=== PATIENT | female | born 2000 | race Caucasian/White ===

== ENCOUNTER 2024-04-20 15:40 | Observation (INO) | payer OTHER, SELFPAY ==
[2024-04-20 15:46] VITALS: BP 128/67; PULSE 62; RESP 16; TEMP 37.1; O2SAT 99; BMI 34.7
[2024-04-20 16:15] LABS: Add Manual Diff / Slide Review NO; Basophils Absolute Auto 0 /uL (0-100); Basophils Percent Auto 0.3 % (0-2); Eosinophils Absolute Auto 100 /uL (0-450); Eosinophils Percent Auto 0.9 % (2-4); Hematocrit 35.9 % (36-46); Hemoglobin 11.7 g/dL (12.0-16.0); Lymphocytes Absolute Auto 2600 /uL (1100-4500); Lymphocytes Percent Auto 21.9 % (25-40); Mean Corpuscular HGB Conc 32.6 % (30-36); Mean Corpuscular Hemoglobin 27.2 PG (26-34); Mean Corpuscular Volume 83.3 fL (80-100); Monocytes Absolute Auto 1000 /uL (0-900); Monocytes Percent Auto 8.6 % (3-14); Neutrophils Absolute Auto 8100 /uL (1500-7000); Neutrophils Percent Auto 68.3 % (50-75); Platelet Count 286 X10^3/uL (150-400); Red Blood Cell Count 4.31 X10^6/uL (4.0-5.2); Red Cell Distribution Width 14.1 % (11.6-14.8); White Blood Cell Count 11.9 X10^3/uL (4.5-11.0)
[2024-04-20 16:30] LABS: Alanine Aminotransferase 22 IU/L (<35); Albumin 3.9 g/dL (3.5-5.0); Albumin Globulin Ratio 1.1 (1.0-2.8); Alkaline Phosphatase 53 U/L (38-126); Aspartate Aminotransferase 26 IU/L (14-36); BUN Creatinine Ratio 15.3 (6-22); Bilirubin Total 0.4 mg/dL (0.2-1.3); Blood Urea Nitrogen 11 mg/dL (7-17); Carbon Dioxide 26 mmol/L (22-32); Chloride 104 mmol/L (98-107); Estimated Glomerular Filt Rate > 60 mL/min (>60); Globulin 3.4 g/dL (1.7-4.1); Glucose 102 mg/dL (70-100); HEMOLYSIS < 15 (0-50); Lipase 37 U/L (23-300); Potassium 3.9 mmol/L (3.4-5.1); Sodium 135 mmol/L (137-145); Total Protein 7.3 g/dL (6.3-8.2)
--- NOTE | 2024-04-20 17:01 | ED.ABDPAIN ---
HPI - Abdominal Pain <Ted Garzon PA-C - Last Filed: 04/20/24 18:36> General Chief Complaint: Abdominal Pain Stated Complaint: lower rt abd px Time Seen by Provider: 04/20/24 17:00 Source: patient Mode of arrival: Family Vehicle History of Present Illness HPI narrative: 23-year-old female presents to the ED with 2 days of abdominal pain. Patient states that her pain started late morning yesterday in the periumbilical region, migrated to the right lower quadrant. Patient endorses some nausea. No fever, chills, vomiting, diarrhea, constipation, hematochezia, melena. No prior abdominal surgeries. Related Data Home Medications Medication Instructions Recorded Confirmed sertraline 50 mg tablet 50 mg PO DAILY 04/20/24 04/20/24 Allergies Allergy/AdvReac Type Severity Reaction Status Date / Time No Known Drug Allergies Allergy Verified 04/20/24 15:53 Review of Systems <Ted Garzon PA-C - Last Filed: 04/20/24 18:36> Constitutional Constitutional: Denies chills, Denies fatigue, Denies fever(s), Denies frequent falls, Denies lethargy and Denies weakness Eyes Eyes: Denies change in vision, Denies eye discharge, Denies irritation and Denies loss of vision ENT Ears, Nose, Mouth, and Throat: Denies change in voice, Denies dizziness, Denies neck pain, Denies sore throat and Denies throat swelling Cardiovascular Cardiovascular: Denies chest pain, Denies irregular heart rhythm, Denies lightheadedness, Denies palpitations, Denies dyspnea, Denies dyspnea on exertion and Denies orthopnea Respiratory Respiratory: Denies cough, Denies dyspnea, Denies dyspnea on exertion and Denies wheezing Gastrointestinal Gastrointestinal: Reports abdominal pain, Denies change in bowel habits, Denies diarrhea, Reports nausea and Denies vomiting Musculoskeletal Musculoskeletal: Denies neck pain and Denies numbness Integumentary/Breasts Skin/Breast: Denies pruritus, Denies erythema, Denies rash and Denies wounds Neurologic Neurologic: Denies behavioral changes, Denies confusion, Denies dizziness, Denies frequent falls, Denies loss of vision, Denies numbness and Denies weakness Psychiatric Psychiatric: Denies anxiety, Denies behavioral changes, Denies confusion, Denies depression, Denies homicidal ideation and Denies suicidal ideation Endocrine Endocrine: Denies fatigue, Denies flushing and Denies palpitations Hematologic/Lymphatic Hematologic/Lymphatic: Denies easy bruising Allergic/Immunologic Allergic/Immunologic: Denies urticaria, Denies throat swelling and Denies wheezing Patient History <Ted Garzon PA-C - Last Filed: 04/20/24 18:36> Social History household members: none Smoking Status: Never smoker alcohol intake: current Exam <Ted Garzon PA-C - Last Filed: 04/20/24 18:36> Narrative Exam Narrative: Const General:?cooperative, healthy appearing and comfortable [facility] Head:?normal to inspection Ears:?hearing grossly normal bilaterally Nose:?external nose normal Face and sinus:?normal facial exam and sinuses nontender Mouth:?oral mucosae normal Throat:?posterior oropharynx normal Eyes General:?appearance normal, both eyes and all related structures Neck Neck:?normal visual inspection and no lymphadenopathy noted Resp Effort & Inspection:?normal respiratory effort Auscultation:?clear to auscultation bilaterally Cardio Rate:?regular rate Rhythm:?regular rhythm GI Abdomen is soft, nondistended. Abdomen is exquisitely tender to palpation in the right lower quadrant. Neuro General:?patient alert, patient awake and patient oriented x3 Initial Vital Signs Initial Vital Signs: Vital Signs Temperature 98.7 F 04/20/24 15:46 Pulse Rate 62 04/20/24 15:46 Respiratory Rate 16 04/20/24 15:46 Blood Pressure 128/67 04/20/24 15:46 Pulse Oximetry 99 04/20/24 15:46 Oxygen Delivery Method Room Air 04/20/24 15:46 <Lia Fragoso DO - Last Filed: 04/21/24 08:17> Initial Vital Signs Initial Vital Signs: Vital Signs Temperature 98.7 F 04/20/24 15:46 Pulse Rate 62 04/20/24 15:46 Respiratory Rate 16 04/20/24 15:46 Blood Pressure 128/67 04/20/24 15:46 Pulse Oximetry 99 04/20/24 15:46 Oxygen Delivery Method Room Air 04/20/24 15:46 Course <Ted Garzon PA-C - Last Filed: 04/20/24 18:36> Orders Ordered: Acetaminophen (Acetaminophen 325 Mg Tablet) 650 mg PO Q6H PRN PRN Reason: Fever/Mild Pain (1-3) Hydrocodone Bitart/Acetaminophen (Hydrocodone/Acet 5/325 Tablet) 1 tab PO Q4H PRN PRN Reason: Pain, Moderate (4-6) Last Admin: 04/20/24 20:05 Dose: 1 tab Documented By: BABATUNDE Hydrocodone Bitart/Acetaminophen (Hydrocodone/Acet 5/325 Tablet) 2 tab PO Q4H PRN PRN Reason: Pain, Severe (7-10) Hydromorphone HCl (Hydromorphone 0.5 Mg Inj) 0.5 mg IV Q2H PRN PRN Reason: Pain, Severe (7-10) Lactated Ringer's (Lactated Ringers) 1,000 mls @ 100 mls/hr IV CONT [facility] Last Admin: 04/20/24 20:50 Dose: 100 mls/hr Documented By: AT Piperacillin Sod/Tazobactam (Sod 3.375 gm/ Sodium Chloride) 100 mls @ 25 mls/hr IV Q8H [facility] Last Admin: 04/21/24 06:40 Dose: 25 mls/hr Documented By: Infusion: 04/21/24 04:07 Dose: Infused Documented By: Admin: 04/21/24 00:07 Dose: 25 mls/hr Documented By: AT Ibuprofen (Ibuprofen 600 Mg Tablet) 600 mg PO Q6H PRN PRN Reason: Fever/Mild Pain (1-3) Naloxone HCl (Naloxone 0.4 Mg/Ml Vial) 0.2 mg IV Q2MIN PRN PRN Reason: Opiate Reversal Ondansetron HCl (Ondansetron 4 Mg/2 Ml Inj) 4 mg IV NOW PRN PRN Reason: Nausea And Vomiting Ondansetron HCl (Ondansetron 4 Mg Odt) 4 mg PO NOW PRN PRN Reason: Nausea And Vomiting Ondansetron HCl (Ondansetron 4 Mg/2 Ml Inj) 4 mg IV Q8HR PRN PRN Reason: Nausea And Vomiting Discontinued Medications Piperacillin Sod/Tazobactam (Sod 4.5 gm/ Sodium Chloride) 100 mls @ 200 mls/hr IV NOW ONE Stop: 04/20/24 18:31 Last Infusion: 04/20/24 19:21 Dose: Infused Documented By: Admin: 04/20/24 18:51 Dose: 200 mls/hr Documented By: RANDAL Vital Signs Vital signs: Vital Signs - 8 hr 04/20/24 15:46 Temperature 98.7 F Pulse Rate 62 Respiratory Rate 16 Blood Pressure 128/67 Pulse Oximetry 99 Oxygen Delivery Method Room Air <Lia FragosoDO - Last Filed: 04/21/24 08:17> Orders Ordered: Acetaminophen (Acetaminophen 325 Mg Tablet) 650 mg PO Q6H PRN PRN Reason: Fever/Mild Pain (1-3) Hydrocodone Bitart/Acetaminophen (Hydrocodone/Acet 5/325 Tablet) 1 tab PO Q4H PRN PRN Reason: Pain, Moderate (4-6) Last Admin: 04/20/24 20:05 Dose: 1 tab Documented By: BABATUNDE Hydrocodone Bitart/Acetaminophen (Hydrocodone/Acet 5/325 Tablet) 2 tab PO Q4H PRN PRN Reason: Pain, Severe (7-10) Hydromorphone HCl (Hydromorphone 0.5 Mg Inj) 0.5 mg IV Q2H PRN PRN Reason: Pain, Severe (7-10) Lactated Ringer's (Lactated Ringers) 1,000 mls @ 100 mls/hr IV CONT [facility] Last Admin: 04/20/24 20:50 Dose: 100 mls/hr Documented By: AT Piperacillin Sod/Tazobactam (Sod 3.375 gm/ Sodium Chloride) 100 mls @ 25 mls/hr IV Q8H [facility] Last Admin: 04/21/24 06:40 Dose: 25 mls/hr Documented By: Infusion: 04/21/24 04:07 Dose: Infused Documented By: Admin: 04/21/24 00:07 Dose: 25 mls/hr Documented By: AT Ibuprofen (Ibuprofen 600 Mg Tablet) 600 mg PO Q6H PRN PRN Reason: Fever/Mild Pain (1-3) Naloxone HCl (Naloxone 0.4 Mg/Ml Vial) 0.2 mg IV Q2MIN PRN PRN Reason: Opiate Reversal Ondansetron HCl (Ondansetron 4 Mg/2 Ml Inj) 4 mg IV NOW PRN PRN Reason: Nausea And Vomiting Ondansetron HCl (Ondansetron 4 Mg Odt) 4 mg PO NOW PRN PRN Reason: Nausea And Vomiting Ondansetron HCl (Ondansetron 4 Mg/2 Ml Inj) 4 mg IV Q8HR PRN PRN Reason: Nausea And Vomiting Discontinued Medications Piperacillin Sod/Tazobactam (Sod 4.5 gm/ Sodium Chloride) 100 mls @ 200 mls/hr IV NOW ONE Stop: 04/20/24 18:31 Last Infusion: 04/20/24 19:21 Dose: Infused Documented By: Admin: 04/20/24 18:51 Dose: 200 mls/hr Documented By: RANDAL Vital Signs Vital signs: Vital Signs - 8 hr 04/20/24 15:46 Temperature 98.7 F Pulse Rate 62 Respiratory Rate 16 Blood Pressure 128/67 Pulse Oximetry 99 Oxygen Delivery Method Room Air MDM - Abdominal Pain <Ted Garzon PA-C - Last Filed: 04/20/24 18:36> Lab Data 04/20/24 15:59 04/20/24 15:59 Labs: Lab Results 04/20/24 Range/Units 15:59 WBC 11.9 H (4.5-11.0) X10^3/uL RBC 4.31 (4.0-5.2) X10^6/uL Hgb 11.7 L (12.0-16.0) g/dL Hct 35.9 L (36-46) % MCV 83.3 (80-100) fL MCH 27.2 (26-34) PG MCHC 32.6 (30-36) % RDW 14.1 (11.6-14.8) % Plt Count 286 (150-400) X10^3/uL Neut % (Auto) 68.3 (50-75) % Lymph % (Auto) 21.9 L (25-40) % [place] % (Auto) 8.6 (3-14) % Eos % (Auto) 0.9 L (2-4) % Baso % (Auto) 0.3 (0-2) % Neut # (Auto) 8100 H (7331-6065) /uL Lymph # (Auto) 2600 (4956-1055) /uL [place] # (Auto) 1000 H (0-900) /uL Eos # (Auto) 100 (0-450) /uL Baso # (Auto) 0 (0-100) /uL Sodium 135 L (137-145) mmol/L Potassium 3.9 (3.4-5.1) mmol/L Chloride 104 (98-107) mmol/L Carbon Dioxide 26 (22-32) mmol/L BUN 11 (7-17) mg/dL Creatinine 0.72 (0.52-1.04) mg/dL Estimated GFR > 60 (>60) mL/min BUN/Creatinine Ratio 15.3 (6-22) Glucose 102 H (70-100) mg/dL Calcium 9.0 (8.4-10.2) mg/dL Total Bilirubin 0.4 (0.2-1.3) mg/dL AST 26 (14-36) IU/L ALT 22 (<35) IU/L Alkaline Phosphatase 53 (38-126) U/L Total Protein 7.3 (6.3-8.2) g/dL Albumin 3.9 (3.5-5.0) g/dL Globulin 3.4 (1.7-4.1) g/dL Albumin/Globulin Ratio 1.1 (1.0-2.8) Lipase 37 (23-300) U/L Point of care testing: Point of Care Testing Test Results Negative Urine Dip Bedside Urine Glucose Negative Bedside Urine Bilirubin - Negative Bedside Urine Ketone - Negative Urine Specific [place] 1.015 Bedside Urine Occult Blood - Negative Bedside Urine pH 6.0 Bedside Urine Protein - Negative Bedside Urine Urobilinogen - Negative Bedside Urine Nitrite - Negative Bedside Urine Leukocytes - Negative Esterase MDM Narrative Medical decision making narrative: 23-year-old female presents to the ED with 2 days of abdominal pain. Concern for appendicitis versus other intra-abdominal pathology versus constipation versus versus ruptured ovarian cyst versus other. Will obtain labs, CT scan. Labs within normal limits. WBC within normal limits at 11.9. Urine is negative for , negative for infection. CT scan shows acute uncomplicated appendicitis without evidence for perforation or abscess formation. The appendix is abnormally thickened and dilated up to 12 mm in diameter. There is periappendiceal stranding. No evidence for perforation or abscess formation. Dr. Rubio from general surgery was consulted. He graciously accepts the patient for surgery to be performed tomorrow. Patient started on Zosyn per his recommendation. Discussed findings and plan with patient. She is agreeable. Patient admitted to surgery. <Lia Fragoso DO - Last Filed: 04/21/24 08:17> Lab Data Labs: Lab Results 04/20/24 Range/Units 15:59 WBC 11.9 H (4.5-11.0) X10^3/uL RBC 4.31 (4.0-5.2) X10^6/uL Hgb 11.7 L (12.0-16.0) g/dL Hct 35.9 L (36-46) % MCV 83.3 (80-100) fL MCH 27.2 (26-34) PG MCHC 32.6 (30-36) % RDW 14.1 (11.6-14.8) % Plt Count 286 (150-400) X10^3/uL Neut % (Auto) 68.3 (50-75) % Lymph % (Auto) 21.9 L (25-40) % [place] % (Auto) 8.6 (3-14) % Eos % (Auto) 0.9 L (2-4) % Baso % (Auto) 0.3 (0-2) % Neut # (Auto) 8100 H (6990-8244) /uL Lymph # (Auto) 2600 (1426-2651) /uL [place] # (Auto) 1000 H (0-900) /uL Eos # (Auto) 100 (0-450) /uL Baso # (Auto) 0 (0-100) /uL Sodium 135 L (137-145) mmol/L Potassium 3.9 (3.4-5.1) mmol/L Chloride 104 (98-107) mmol/L Carbon Dioxide 26 (22-32) mmol/L BUN 11 (7-17) mg/dL Creatinine 0.72 (0.52-1.04) mg/dL Estimated GFR > 60 (>60) mL/min BUN/Creatinine Ratio 15.3 (6-22) Glucose 102 H (70-100) mg/dL Calcium 9.0 (8.4-10.2) mg/dL Total Bilirubin 0.4 (0.2-1.3) mg/dL AST 26 (14-36) IU/L ALT 22 (<35) IU/L Alkaline Phosphatase 53 (38-126) U/L Total Protein 7.3 (6.3-8.2) g/dL Albumin 3.9 (3.5-5.0) g/dL Globulin 3.4 (1.7-4.1) g/dL Albumin/Globulin Ratio 1.1 (1.0-2.8) Lipase 37 (23-300) U/L Point of care testing: Point of Care Testing Test Results Negative Urine Dip Bedside Urine Glucose Negative Bedside Urine Bilirubin - Negative Bedside Urine Ketone - Negative Urine Specific [place] 1.015 Bedside Urine Occult Blood - Negative Bedside Urine pH 6.0 Bedside Urine Protein - Negative Bedside Urine Urobilinogen - Negative Bedside Urine Nitrite - Negative Bedside Urine Leukocytes - Negative Esterase Discharge Plan Departure Patient Disposition: Admitted to Surgery Clinical Impression: Acute appendicitis Qualifiers: Acute appendicitis type: unspecified acute appendicitis type Qualified Code(s): K35.80 - Unspecified acute appendicitis Admit Date/Time: 04/20/24 18:33 Admit Provider: Juan Alberto Rubio ED Sign-out <Lia Fragoso DO - Last Filed: 04/21/24 08:17> Cosign ED Attending Cosignature Attestation: I was available for consultation.
--- NOTE | 2024-04-20 17:06 | DI.CT.S_ITS ---
PROCEDURE: CT ABDOMEN PELVIS W CON INDICATIONS: RLQ pain TECHNIQUE: After the administration of intravenous contrast, axial sections acquired from the lung bases to the pubic symphysis. Coronal and sagittal reformats were performed. For radiation dose reduction, the following was used: automated exposure control, adjustment of mA and/or kV according to patient size. COMPARISON: [facility], CT, CT ABDOMEN PELVIS WITH CONTRAST, 11/24/2021, 16:32. FINDINGS: Image quality: Diagnostic. Lower Chest: No significant findings. ABDOMEN: Liver: No solid mass. Gallbladder: No radiopaque gallstones or wall thickening. Biliary ducts: No biliary dilation. Pancreas: No ductal dilation. Spleen: Size is within normal limits. Adrenal Glands: No adrenal nodules. Kidneys and Ureters: No hydronephrosis. No solid mass. No complex renal cystic lesion which requires follow up. Stomach and Bowel: Normal colonic caliber, without significant wall thickening. The appendix is abnormally thickened and dilated up to 12 mm in diameter. Periappendiceal stranding. No evidence for perforation or abscess formation. Peritoneum: No abnormal intraperitoneal fluid. No free air. Ventral Wall: No significant ventral hernia. Abdominal Nodes: No retroperitoneal or mesenteric adenopathy by size criteria. Vessels: Aorta and inferior vena cava are normal in size. PELVIS: Pelvic Organs: Unremarkable. Bladder: No bladder wall thickening, accounting for underdistention. Pelvic Nodes: No enlarged lymph nodes. Miscellaneous: No inguinal hernias are seen. Bones: No aggressive osseous abnormality. Visualized osseous structures appear intact without acute fracture or focal destructive lesion. No acute compression fractures of the imaged spine. IMPRESSION: Acute uncomplicated appendicitis without evidence for perforation or abscess formation. Dictated by: Malcolm Uriarte M.D. on 04/20/2024 at 18:14 Approved by: Malcolm Uriarte M.D. on 04/20/2024 at 18:18
[2024-04-20] MEDS: PIPERACILLIN/TAZO 4.5 GM in SODIUM CHLORIDE 0.9% 100 ML IV (18:51)
--- NOTE | 2024-04-20 18:59 | PM.HP.1 ---
History of Present Illness History of Present Illness Date Patient Seen: 04/20/24 Time Patient Seen: 18:59 Chief complaint: lower rt abd px Narrative: Aparna is a 23-year-old woman who presents with about 24 hours of right lower quadrant abdominal pain. A CT scan shows acute uncomplicated appendicitis. She was no prior abdominal surgical history. Meds Home Medications and Allergies Allergies Allergy/AdvReac Type Severity Reaction Status Date / Time No Known Drug Allergies Allergy Verified 04/20/24 15:53 Exam Vital Signs (past 8 hours): - 04/20/24 15:46 Temperature 98.7 F Pulse Rate 62 Respiratory Rate 16 Blood Pressure 128/67 Pulse Oximetry 99 Oxygen Delivery Method Room Air Oxygen Delivery Method Room Air Const General: healthy appearing Resp Effort & Inspection: normal respiratory effort Objective Labs 04/20/24 15:59 04/20/24 15:59 Labs: Laboratory Results - last 24 hr 04/20/24 15:59 WBC 11.9 H RBC 4.31 Hgb 11.7 L Hct 35.9 L MCV 83.3 MCH 27.2 MCHC 32.6 RDW 14.1 Plt Count 286 Neut % (Auto) 68.3 Lymph % (Auto) 21.9 L [place] % (Auto) 8.6 Eos % (Auto) 0.9 L Baso % (Auto) 0.3 Neut # (Auto) 8100 H Lymph # (Auto) 2600 [place] # (Auto) 1000 H Eos # (Auto) 100 Baso # (Auto) 0 Sodium 135 L Potassium 3.9 Chloride 104 Carbon Dioxide 26 BUN 11 Creatinine 0.72 Estimated GFR > 60 BUN/Creatinine Ratio 15.3 Glucose 102 H Calcium 9.0 Total Bilirubin 0.4 AST 26 ALT 22 Alkaline Phosphatase 53 Total Protein 7.3 Albumin 3.9 Globulin 3.4 Albumin/Globulin Ratio 1.1 Lipase 37 Assessment & Plan Assessment and plan (1) Acute appendicitis: Qualifiers: Acute appendicitis type: unspecified acute appendicitis type Qualified Code(s): K35.80 - Unspecified acute appendicitis Status: Acute Plan We discussed the diagnosis of acute appendicitis. I described the options of laparoscopic appendectomy versus antibiotic therapy alone. She would like to proceed with surgery. We will plan to proceed with surgery tomorrow afternoon. She will receive Zosyn overnight and be NPO midnight. Time-Based Coding :: [TOTAL MINUTES] spent with patient and on the chart (including review of chart, obtaining history, exam, reviewing outside data, placing orders, documenting exam and treatment plan, and counseling patient) on [DATE].
[2024-04-20 19:40] VITALS: BMI 35.2
[2024-04-20 20:00] VITALS: BP 127/59; PULSE 55; RESP 16; TEMP 37.2; O2SAT 100
[2024-04-20] MEDS: HYDROCODONE/ACET 5/325 TABLET 1 TAB PO (20:05)
[2024-04-20] MEDS: LACTATED RINGERS 1,000 ML 100 ML IV (20:50)
[2024-04-20 21:00] VITALS: BP 130/68; PULSE 66; RESP 19; TEMP 36.3; O2SAT 99
[2024-04-21] VITALS (8 sets, daily range): BP systolic 100–129; BP diastolic 44–68; PULSE 59–87; RESP 17–20; TEMP 35.9–36.8; O2SAT 96–100; BMI 35.2
--- NOTE | 2024-04-21 | PATH_ITS ---
[facility] Accession Number: [id number] No. of containers..01 Tissue . 01 Material submitted: . appendix - APPENDIX . 01 Diagnosis: APPENDIX, APPENDECTOMY: Early acute appendicitis. Negative for dysplasia and malignancy. [facility] 04/24/2024 1158 Local . 01 Electronically signed: . Stefan Hines MD, Pathologist NPI- [id number] . 01 Gross description: . Received in formalin with two patient identifiers and appendix, is a araiza, vermiform appendix, 5.7 cm in length by 0.8 cm in diameter. The serosa is araiza and smooth with slightly dilated vasculature and mesoappendix extending out to 1.5 cm. The margin is inked blue. Sectioning reveals the lumen is patent and averages 0.3 cm in diameter with minimal contents identified. The mercado average 0.5 cm thick with no perforation or lesions identified. Licensed Practical Nurse sections to include the margin, one-half of the bisected distal tip, and cross section are submitted in A1. ([id number]) /MRV 04/23/2024 1411 Local . 01 Pathologist provided ICD-10: K35.80 . 01 CPT . 850357 Specimen Comment: A courtesy copy of this report has been sent to [phone] Performed at: [address] [facility] [address], [place], [place] [id number] MD Octavio Poon MD Phone: [phone]
[2024-04-21] MEDS: PIPERACILLIN/TAZO 3.375 GM in SODIUM CHLORIDE 0.9% 100 ML IV ×2 (00:07→06:40)
--- NOTE | 2024-04-21 12:35 | PM.PREOP ---
Pre-operative Note COVID-19 COVID-19 status: Not tested Interval Note History & Physical reviewed/Exam performed by Physician: Yes Changes to H&P: No ASA Class (for procedural sedation): II
--- NOTE | 2024-04-21 13:12 | SUR.OPER ---
Supine on padded OR bed, head on pillow, RIGHT arm secured on padded arm board at <90 degrees abduction, LEFT ARM PADDED AND TUCKED, legs uncrossed, safety belt at thigh, tape over blanket over lower legs.
[2024-04-21] MEDS: LACTATED RINGERS 1,000 ML 100 ML IV (13:19)
[2024-04-21] MEDS: BUPIVACAINE 0.5% W/ EPI (PF) 30 ML VIAL INJ (13:20)
--- NOTE | 2024-04-21 13:39 | PM.OP.1 ---
Operative Date/Time/Diagnoses Date of procedure: 04/21/24 Time of procedure: 13:39 Pre-op diagnosis: Acute appendicitis Post-op diagnosis: same Procedure & Clinicians Procedure: Laparoscopic appendectomy Same procedure as scheduled: Yes Surgeon: Juan Alberto Rubio Anesthesia Type: General Operative Notes Procedure in detail: The patient was on IV antibiotics. The patient was brought to the operating room, placed on the table in the supine position and general endotracheal anesthesia was induced. A time-out was performed. The abdomen was prepped and draped in the usual fashion. After injection of local anesthetic a 1 cm infraumbilical incision was created with a 15 blade scalpel. The umbilical stalk was grasped with a Shell clamp to elevate the abdominal wall. The infraumbilical midline fascia was cleared over 1 cm and the fascia was scored with cautery. The peritoneum was pierced with a Peon clamp. The Giovani port was placed and the abdomen was insufflated to 15 mmHg. The camera was inserted and there was no evidence of any injury from the entry. Next, 5 mm ports were placed in the suprapubic and left lower quadrant positions under direct vision. The patient was placed in Trendelenburg with the right-side elevated. The terminal ileum was swept away from the cecum and the appendix was visualized. The appendix was distended with no evidence of gangrene. The mesoappendix was divided with the Power-seal. Two PDS Endoloops were placed at the base and a 3rd endoloop was placed about a centimeter distally and the appendix was divided sharply. The specimen was placed in a Endo-Catch bag. A small amount of fluid with suctioned from the base of the appendix and pelvis. The table was flattened and the terminal ileum and omentum were allowed to slide in over the appendiceal stump. Finally, the 5 mm ports were removed under direct vision. The pneumoperitoneum was released and the Giovani port was removed followed by the Endo-Catch bag. Additional local was injected into the fascia and the infraumbilical incision was closed with 2 interrupted 2-0 Vicryl sutures. The skin incisions were closed with 4 Monocryl. Steri-Strips were applied followed by Band-Aids. EBL: 5 mL Specimen: Appendix Post-operative Condition: stable Disposition: PACU
--- NOTE | 2024-04-21 14:08 | CM.DANOTE ---
Initial DCP Assessment Visit Note Reviewed EMR and team rounds for status updates. Went to meet with pt at bedside, however she had already been taken down to surgery. CHICKEN DRESSER met with pt's mother briefly, she will be transporting pt home once she's stablized from her surgery. Pt lives independent at baseline with her family in their home in [place]. Payor: Claudette Warren Attending: Dr. Rubio Pt is a 23 year-old F who presented last evening to the ED with c/o 2-days of lower R-sided quadrant abdominal pain, and nausea. CT scan was positive for acute appendicitis, Surgery was consulted and the plan was made to make pt NPO for a planned appendectomy (today). Pt will likely d/c home later this evening w/family, unless she has any postoperative complications or pain concerns. DCP will continue to monitor for any further evolving needs, however none are anticipated at this time. Discharge Planning/Care Management CM Discharge Assessment Start: 04/21/24 14:05 Freq: Status: Active Protocol: Document 04/21/24 14:07 DPL (Rec: 04/21/24 14:08 DPL [id number]) Discharge Planning Assessment Assigned Commercial Loan Coordinator LUIS FERNANDO Theodore Advance Directives? No History Provided By Family Member,Medical Record Has Patient been admitted in last 30 No days? Prior Living Arrangements Apartment/Condo Household Members family,none Type of transporation used prior to Drives own vehicle admit Independent with ADL's Yes Is patient alert and oriented? Yes Comment N/A Caregiver for Another No Comment N/A Comment No identified home d/c needs identified at this time. Barriers to Discharge No Discharge Plan Home Transportation Arrangement Mother Referrals Initiated None needed Whiteboard Updated in Patient Room with Yes name and ext. # of Commercial Loan Coordinator Review Status In Process Please Provide Date Initial DC 04/21/24 Assessment Was Performed
--- NOTE | 2024-04-21 14:47 | PC.NURSE ---
Pt to room 221 via w/c from PACU. Pt is alert and oriented x 3. Denies pain, nausea, or shortness of breath. Pt's Mother is in the room and at the bedside. Pt was given something to eat and drink per request. Discussed going home with both if Pt is feeling well and they are both eager to go home. Will monitor Pt for pain control and tolerance to food and drink and proceed with discharge when appropriate and Pt feels ready to go.
[2024-04-21] MEDS: HYDROCODONE/ACET 5/325 TABLET 1 TAB PO (15:45)
--- NOTE | 2024-04-21 16:31 | PC.NURSE ---
Pt ready for discharge home with family. IV has been removed. Went over d/c instructions with Pt-discussed d/c meds, time of last dose, reviewed stroke education, s/s of infection, no lifting greater than 30 pounds for 2 weeks, no driving while taking narcotics or until cleared by Dr. Rubio. Encouraged Pt to drink plenty of fluids to prevent constipation or dehydration. Pt denied further questions and will be taken out via w/c to POV with family and all belongings.
== END 2024-04-21 16:44 | disposition home or self-care (01) ==
LOC: ED 18:32 → AC 04-21 07:01
PROVIDERS: Emergency Medicine; Admitting Provider Surgery; Emergency Provider Student in an Organized Health Care Education/Training Program; Referring Provider Student in an Organized Health Care Education/Training Program; Visit Provider Surgery
PROC: 0DTJ4ZZ Resection of Appendix, Percutaneous Endoscopic Approach (ICD-10-PCS; CPT 44970; principal; 2024-04-21 14:15)
DX: K35.80 Unspecified acute appendicitis (principal)
CPT/HCPCS: 44970; 36415; 74177; 80053; 81003; 81025; 83690; 85025; 96360; 96361; 96365; 99222; 99284; 99285; G0378; J0330; J1100; J2250; J2405; J2543; J2704; J3010; J3490; Q9967